=== PATIENT | male | born 1965 | race Caucasian/White ===

== ENCOUNTER 2020-05-30 08:11 | Outpatient (CLI) | payer OTHER, SELFPAY ==
[2020-05-30 08:58] LABS: Basophils Absolute Auto 0.1 K/mm3 (0.0-0.1); Basophils Percent Auto 0.9 % (0.2-1.2); Eosinophils Absolute Auto 0.1 K/mm3 (0-0.3); Eosinophils Percent Auto 2.4 % (0-4.4); Hematocrit 44.4 % (42.0-52.0); Hemoglobin 15.2 g/dL (14.0-18.0); Immature Granulocyte Absolute 0.02 K/mm3 (0.00-0.031); Immature Granulocyte Percent A 0.3 % (0-0.5); Lymphocytes Absolute Auto 1.56 K/mm3 (0.9-3.2); Lymphocytes Percent Auto 27.3 % (18.3-44.2); Mean Corpuscular HGB Conc 34.2 g/dl (32-36); Mean Corpuscular Hemoglobin 30.5 pg (26-34); Mean Platelet Volume 9.7 fl (7.4-10.4); Monocytes Absolute Auto 0.5 K/mm3 (0.1-0.6); Monocytes Percent Auto 7.9 % (2.6-8.5); Neutrophils Absolute Auto 3.5 K/mm3 (1.3-6.7); Neutrophils Percent Auto 61.2 % (45.5-73.1); Platelet Count Result 242 k/mm3 (150-375); Red Blood Count 4.99 M/mm3 (4.6-6.20); Red Cell Distribution Width 12.5 % (11.5-14.5); White Blood Count 5.7 K/mm3 (4.5-10.0)
[2020-05-30 09:11] LABS: Alanine Aminotransferase 19 U/L (4-50); Albumin Level 3.9 g/dL (3.5-5.1); Alkaline Phosphatase 49 U/L (38-126); Anion Gap 4 mmol/L (8-16); Aspartate Amino Transferase 24 U/L (17-59); Bilirubin,Total 0.5 mg/dL (0.2-1.3); Blood Urea Nitrogen 13 mg/dL (9-20); Calcium 9.1 mg/dL (8.4-10.2); Carbon Dioxide 32 mmol/L (22-30); Chloride 104 mmol/L (98-107); Cholesterol 199 mg/dL (0-200); Estimated Glomerular Filt Rate > 60; Glucose 105 mg/dL (75-110); HDL Direct 43 mg/dL; Potassium 4.8 mmol/L (3.4-5.0); Sodium 140 mmol/L (137-145); Triglycerides 95 mg/dL (<150)
[2020-05-30 09:22] LABS: LDL Cholesterol Direct 128 mg/dL
[2020-05-30 09:27] LABS: T4 Thyroxine 7.66 ug/dL (5.53-11.0)
[2020-05-30 09:41] LABS: Prostate Specific Antigen 0.6 ng/mL (< OR = 4.0)
== END 2020-05-30 08:12 | disposition home or self-care (01) ==
PROVIDERS: PCP Internal Medicine; Visit Provider Internal Medicine
DX: N42.9 Disorder of prostate, unspecified (principal); I10 Essential (primary) hypertension
CPT/HCPCS: 36415; 80053; 80061; 84153; 84436; 84443; 85025

== ENCOUNTER 2022-08-19 01:25 | Day surgery (SDC) | payer BC, SELFPAY ==
[2022-08-03 14:54] VITALS: BMI 26.5
--- NOTE | 2022-08-18 13:35 | P.PNAN_ITS ---
Anes - Initial Pre Proc Eval Procedure: Operation Date: 08/19/22 07:30 Proposed Procedures p Screening Colonoscopy - Kingston Brock MD Date/Time: 08/18/22 13:35 Surgeon: Kingston Brock MD Pre Op Diagnosis: hx of colon polyps Patient Data Age: 57 Gender: M Height: 1.78 m Weight: 84 kg Allergies Allergy/AdvReac Type Severity Reaction Status Date / Time No Known Allergies Allergy Verified 08/03/22 14:53 Home Medications Medication Instructions Recorded Confirmed Type Lactobacillus 1 cap PO DAILY 08/03/22 08/19/22 History acidophilus-Bifidobac.animalis 2.5 billion cell capsule (Daily Probiotic) amlodipine 2.5 mg tablet 2.5 mg PO DAILY 08/03/22 08/19/22 History loratadine 10 mg tablet 10 mg PO DAILY 08/03/22 08/19/22 History multivitamin with minerals-folic 1 tablet PO DAILY 08/03/22 08/19/22 History acid 0.4 mg tablet rosuvastatin 10 mg tablet 10 mg PO DAILY 08/03/22 08/19/22 History Patient hx anesthesia problems: none Family hx anesthesia problems: none Results Review: All pre-operative results and documents have been reviewed as part of the pre- operative evaluation. [facility] Past Medical History Medical History Hyperlipidemia Hypertension IBS (irritable bowel syndrome) Social History Social History Smoking status: Never smoker Alcohol intake: current Drinks per week: 6 Substance use type: does not use Living arrangements: with family Spiritual care concerns: No Anes - Eval Final PreProcedure Day of Procedure 08/18/22 13:35 Patient weight: overweight Heart: regular rate and rhythm Lungs: clear to auscultation Airway: Mallampati scale class II Neurological: alert and oriented Last oral intake: >/= 8 hours ASA classification: II Emergent: no Anesthetic plan: proceed Anesthesia type and monitoring: general GIVS and standard monitoring Results Review: All pre-operative results and documents have been reviewed as part of the pre- operative evaluation. Informed Consent: The patient's anesthetic plan and its attendant risks and benefits were discussed with the patient/family/POA. Questions were solicited and answers provided to the satisfaction of the patient/family/POA.
--- NOTE | 2022-08-18 13:50 | PM.HPGS ---
History of Present Illness History of Present Illness Consent: Risks, benefits, and alternatives have been discussed and questions answered. Patient agrees to proceed with procedure. Chief complaint: hx of colon polyps Narrative: John Pelayo Jr. is a 57 year old male Referred for colon cancer screening. His last colonoscopy was about 8 years ago. He does have a history of polyps. Review of Systems Review of Systems: All systems reviewed & are unremarkable except as noted in HPI and below PMFSH Past Medical History Medical History Hyperlipidemia Hypertension IBS (irritable bowel syndrome) Social History Social History Smoking status: Never smoker Alcohol intake: current Drinks per week: 6 Substance use type: does not use Living arrangements: with family Spiritual care concerns: No Meds Home Medications and Allergies Home Medications Medication Instructions Recorded Confirmed Type Lactobacillus 1 cap PO DAILY 08/03/22 08/19/22 History acidophilus-Bifidobac.animalis 2.5 billion cell capsule (Daily Probiotic) amlodipine 2.5 mg tablet 2.5 mg PO DAILY 08/03/22 08/19/22 History loratadine 10 mg tablet 10 mg PO DAILY 08/03/22 08/19/22 History multivitamin with minerals-folic 1 tablet PO DAILY 08/03/22 08/19/22 History acid 0.4 mg tablet rosuvastatin 10 mg tablet 10 mg PO DAILY 08/03/22 08/19/22 History Allergies Allergy/AdvReac Type Severity Reaction Status Date / Time No Known Allergies Allergy Verified 08/03/22 14:53 Exam Const: General: alert Orientation/consciousness: patient oriented x3 Resp: Auscultation: clear to auscultation bilaterally Cardio: Rhythm: regular rhythm GI: GI Palp: Yes Soft to palpation and No Tenderness to palpation present (GI) Neuro: General: patient oriented x3 Assessment and Plan Assessment and plan (1) Colon cancer screening: Code(s): Z12.11 - Encounter for screening for malignant neoplasm of colon Status: Acute Assessment and Plan: Colonoscopy with possible biopsy or polypectomy or cautery or injection of substances.
[2022-08-19 06:18] VITALS: BP 135/74; PULSE 66; RESP 16; TEMP 36.1; O2SAT 100
[2022-08-19] MEDS: LACTATED RINGERS 1,000 ML 150 ML IV CONT (06:32)
[2022-08-19 07:51] VITALS: BP 100/73; PULSE 69; RESP 19; O2SAT 100
[2022-08-19 08:01] VITALS: BP 128/77; PULSE 65; RESP 18; O2SAT 100
[2022-08-19 08:11] VITALS: BP 123/82; PULSE 64; RESP 20; O2SAT 100
== END 2022-08-19 08:22 | disposition home or self-care (01) ==
PROVIDERS: PCP Internal Medicine; Visit Provider Internal Medicine Gastroenterology
PROC: 0DJD8ZZ Inspection of Lower Intestinal Tract, Via Natural or Artificial Opening Endoscopic (ICD-10-PCS; CPT 45378; principal; 2022-08-19 07:30)
DX: Z12.11 Encounter for screening for malignant neoplasm of colon (principal); K64.8 Other hemorrhoids; K57.30 Diverticulosis of large intestine without perforation or abscess without bleeding; D12.5 Benign neoplasm of sigmoid colon; I10 Essential (primary) hypertension; E78.5 Hyperlipidemia, unspecified; K58.9 Irritable bowel syndrome, unspecified
CPT/HCPCS: 45385; 88305; J2704; J7120

== ENCOUNTER 2022-09-21 00:52 | Day surgery (SDC) | payer BC, SELFPAY ==
[2022-09-06 11:14] VITALS: BMI 26.9
--- NOTE | 2022-09-20 16:41 | PM.HPGS ---
History of Present Illness History of Present Illness Consent: Risks, benefits, and alternatives have been discussed and questions answered. Patient agrees to proceed with procedure. Chief complaint: dysphagia Narrative: Jonh Pelayo Jr. is a 57 year old male Dysphagia for solid food. at times it feels like it does not want to go down. On other occasions it will seem to be stuck in his chest. He states that his tells me he eats too fast. He has also had a great deal of bloating, flatulence, and burping lately. He does not have a CPAP machine. Review of Systems Review of Systems: All systems reviewed & are unremarkable except as noted in HPI and below PMFSH Past Medical History Medical History Hyperlipidemia Hypertension IBS (irritable bowel syndrome) Social History Social History Smoking status: Never smoker Alcohol intake: current Drinks per week: 6 Alcohol use details: socially Substance use: never Substance use type: does not use Living arrangements: alone Spiritual care concerns: No Meds Home Medications and Allergies Home Medications Medication Instructions Recorded Confirmed Type Lactobacillus 1 cap PO DAILY 08/03/22 09/21/22 History acidophilus-Bifidobac.animalis 2.5 billion cell capsule (Daily Probiotic) amlodipine 2.5 mg tablet 2.5 mg PO DAILY 08/03/22 09/21/22 History loratadine 10 mg tablet 10 mg PO DAILY 08/03/22 09/21/22 History multivitamin with minerals-folic 1 tablet PO DAILY 08/03/22 09/21/22 History acid 0.4 mg tablet rosuvastatin 10 mg tablet 10 mg PO DAILY 08/03/22 09/21/22 History Allergies Allergy/AdvReac Type Severity Reaction Status Date / Time No Known Allergies Allergy Verified 09/21/22 06:15 Exam Const: General: alert Orientation/consciousness: patient oriented x3 Resp: Auscultation: clear to auscultation bilaterally Cardio: Rhythm: regular rhythm GI: GI Palp: Yes Soft to palpation and No Tenderness to palpation present (GI) Neuro: General: patient oriented x3 Assessment and Plan Assessment and plan (1) Dysphagia: Code(s): R13.10 - Dysphagia, unspecified Status: Acute Assessment and Plan: EGD with possible biopsy or dilatation or cautery.
[2022-09-21 06:16] VITALS: BP 138/79; PULSE 59; RESP 16; TEMP 36; O2SAT 100; BMI 26.6
[2022-09-21] MEDS: LACTATED RINGERS 1,000 ML 150 ML IV CONT (06:24)
--- NOTE | 2022-09-21 07:18 | P.PNAN_ITS ---
Anes - Initial Pre Proc Eval Procedure: Operation Date: 09/21/22 07:30 Proposed Procedures p Esophagogastroduodenoscopy - Kingston Brock MD Date/Time: 09/21/22 07:18 Surgeon: Kingston Brock MD Pre Op Diagnosis: dysphagia Patient Data Age: 57 Gender: M Height: 1.78 m Weight: 84.3 kg Last Vital Signs Temp 96.8 F L 09/21/22 06:16 Pulse 59 L 09/21/22 06:16 Resp 16 09/21/22 06:16 BP 138/79 09/21/22 06:16 Pulse Ox 100 09/21/22 06:16 O2 Del Method Room Air 09/21/22 06:16 Allergies Allergy/AdvReac Type Severity Reaction Status Date / Time No Known Allergies Allergy Verified 09/21/22 06:15 Home Medications Medication Instructions Recorded Confirmed Type Lactobacillus 1 cap PO DAILY 08/03/22 09/21/22 History acidophilus-Bifidobac.animalis 2.5 billion cell capsule (Daily Probiotic) amlodipine 2.5 mg tablet 2.5 mg PO DAILY 08/03/22 09/21/22 History loratadine 10 mg tablet 10 mg PO DAILY 08/03/22 09/21/22 History multivitamin with minerals-folic 1 tablet PO DAILY 08/03/22 09/21/22 History acid 0.4 mg tablet rosuvastatin 10 mg tablet 10 mg PO DAILY 08/03/22 09/21/22 History Patient hx anesthesia problems: none Family hx anesthesia problems: none Results Review: All pre-operative results and documents have been reviewed as part of the pre- operative evaluation. [facility] Past Medical History Medical History Hyperlipidemia Hypertension IBS (irritable bowel syndrome) Social History Social History Smoking status: Never smoker Alcohol intake: current Drinks per week: 6 Alcohol use details: socially Substance use: never Substance use type: does not use Living arrangements: alone Spiritual care concerns: No Anes - Eval Final PreProcedure Day of Procedure 09/21/22 07:18 Patient weight: normal Heart: regular rate and rhythm Lungs: clear to auscultation Airway: Mallampati scale class II Neurological: alert and oriented Last oral intake: >/= 8 hours ASA classification: II Emergent: no Anesthetic plan: proceed Anesthesia type and monitoring: general GIVS and standard monitoring Results Review: All pre-operative results and documents have been reviewed as part of the pre- operative evaluation. Informed Consent: The patient's anesthetic plan and its attendant risks and benefits were discussed with the patient/family/POA. Questions were solicited and answers provided to the satisfaction of the patient/family/POA.
[2022-09-21 07:43] VITALS: BP 106/70; PULSE 60; RESP 14; O2SAT 98
[2022-09-21 07:53] VITALS: BP 118/74; PULSE 61; RESP 23; O2SAT 100
[2022-09-21 08:03] VITALS: BP 125/90; PULSE 60; RESP 18; O2SAT 100
== END 2022-09-21 08:10 | disposition home or self-care (01) ==
PROVIDERS: PCP Internal Medicine; Visit Provider Internal Medicine Gastroenterology
PROC: 0DJ08ZZ Inspection of Upper Intestinal Tract, Via Natural or Artificial Opening Endoscopic (ICD-10-PCS; CPT 43235; principal; 2022-09-21 07:30)
DX: K22.2 Esophageal obstruction (principal); I10 Essential (primary) hypertension; E78.5 Hyperlipidemia, unspecified
CPT/HCPCS: 43249; 88305; C1726; J2704; J7120

== ENCOUNTER 2022-12-12 00:42 | Day surgery (SDC) | payer BC, SELFPAY ==
[2022-11-29 13:17] VITALS: BMI 26.9
--- NOTE | 2022-12-11 19:22 | PM.HPGS ---
History of Present Illness History of Present Illness Consent: Risks, benefits, and alternatives have been discussed and questions answered. Patient agrees to proceed with procedure. Chief complaint: Esophageal Stricture, Dysphagia Narrative: John Pelayo Jr. is a 57 year old male with dysphagia due to esophageal stricture. Review of Systems Review of Systems: All systems reviewed & are unremarkable except as noted in HPI and below PMFSH Past Medical History Medical History Hyperlipidemia Hypertension IBS (irritable bowel syndrome) Social History Social History Smoking status: Never smoker Alcohol intake: current Drinks per week: 6 Alcohol use details: socially Substance use: never Substance use type: does not use Living arrangements: with family Spiritual care concerns: No Meds Home Medications and Allergies Home Medications Medication Instructions Recorded Confirmed Type Lactobacillus 1 cap PO DAILY 08/03/22 11/29/22 History acidophilus-Bifidobac.animalis 2.5 billion cell capsule (Daily Probiotic) amlodipine 2.5 mg tablet 2.5 mg PO DAILY 08/03/22 11/29/22 History loratadine 10 mg tablet 10 mg PO DAILY 08/03/22 11/29/22 History multivitamin with minerals-folic 1 tablet PO DAILY 08/03/22 11/29/22 History acid 0.4 mg tablet rosuvastatin 10 mg tablet 10 mg PO DAILY 08/03/22 11/29/22 History pantoprazole 40 mg tablet,delayed 40 mg PO QAM #30 tabs 09/21/22 11/29/22 Rx release Allergies Allergy/AdvReac Type Severity Reaction Status Date / Time No Known Allergies Allergy Verified 12/12/22 08:01 Exam Const: General: alert Orientation/consciousness: patient oriented x3 Resp: Auscultation: clear to auscultation bilaterally Cardio: Rhythm: regular rhythm GI: GI Palp: Yes Soft to palpation and No Tenderness to palpation present (GI) Neuro: General: patient oriented x3 Assessment and Plan Assessment and plan (1) Dysphagia: Code(s): R13.10 - Dysphagia, unspecified Status: Acute Assessment and Plan: EGD with possible biopsy or dilatation or cautery.
[2022-12-12 08:02] VITALS: BP 130/78; PULSE 64; RESP 20; TEMP 36.3; O2SAT 100
[2022-12-12] MEDS: LACTATED RINGERS 1,000 ML 150 ML IV CONT (08:12)
--- NOTE | 2022-12-12 08:27 | P.PNAN_ITS ---
Anes - Initial Pre Proc Eval Procedure: Operation Date: 12/12/22 09:00 Proposed Procedures p Esophagogastroduodenoscopy - Kingston Brock MD Date/Time: 12/12/22 08:27 Surgeon: Kingston Brock MD Pre Op Diagnosis: Esophageal Stricture, Dysphagia Patient Data Age: 57 Gender: M Height: 1.78 m Weight: 86.5 kg Last Vital Signs Temp 97.3 F L 12/12/22 08:02 Pulse 64 12/12/22 08:02 Resp 20 12/12/22 08:02 BP 130/78 12/12/22 08:02 Pulse Ox 100 12/12/22 08:02 O2 Del Method Room Air 12/12/22 08:02 Allergies Allergy/AdvReac Type Severity Reaction Status Date / Time No Known Allergies Allergy Verified 12/12/22 08:01 Home Medications Medication Instructions Recorded Confirmed Type Lactobacillus 1 cap PO DAILY 08/03/22 11/29/22 History acidophilus-Bifidobac.animalis 2.5 billion cell capsule (Daily Probiotic) amlodipine 2.5 mg tablet 2.5 mg PO DAILY 08/03/22 11/29/22 History loratadine 10 mg tablet 10 mg PO DAILY 08/03/22 11/29/22 History multivitamin with minerals-folic 1 tablet PO DAILY 08/03/22 11/29/22 History acid 0.4 mg tablet rosuvastatin 10 mg tablet 10 mg PO DAILY 08/03/22 11/29/22 History pantoprazole 40 mg tablet,delayed 40 mg PO QAM #30 tabs 09/21/22 11/29/22 Rx release Patient hx anesthesia problems: none Family hx anesthesia problems: none Results Review: All pre-operative results and documents have been reviewed as part of the pre- operative evaluation. [facility] Past Medical History Medical History Hyperlipidemia Hypertension IBS (irritable bowel syndrome) Social History Social History Smoking status: Never smoker Alcohol intake: current Drinks per week: 6 Alcohol use details: socially Substance use: never Substance use type: does not use Living arrangements: with family Spiritual care concerns: No Anes - Eval Final PreProcedure Day of Procedure 12/12/22 08:27 Patient weight: normal Heart: regular rate and rhythm Lungs: clear to auscultation Airway: Mallampati scale class II Neurological: alert and oriented Last oral intake: >/= 8 hours ASA classification: II Emergent: no Anesthetic plan: proceed Anesthesia type and monitoring: general GIVS and standard monitoring Results Review: All pre-operative results and documents have been reviewed as part of the pre- operative evaluation. Informed Consent: The patient's anesthetic plan and its attendant risks and benefits were discu ssed with the patient/family/POA. Questions were solicited and answers provided to the satisfaction of the patient/family/POA.
[2022-12-12 09:06] VITALS: BP 112/68; PULSE 64; RESP 23; O2SAT 100
[2022-12-12 09:16] VITALS: BP 110/79; PULSE 55; RESP 17; O2SAT 100
[2022-12-12 09:26] VITALS: BP 115/81; PULSE 54; RESP 20; O2SAT 100
== END 2022-12-12 09:33 | disposition home or self-care (01) ==
PROVIDERS: PCP Internal Medicine; Visit Provider Internal Medicine Gastroenterology
PROC: 0DJ08ZZ Inspection of Upper Intestinal Tract, Via Natural or Artificial Opening Endoscopic (ICD-10-PCS; CPT 43235; principal; 2022-12-12 09:00)
DX: K22.2 Esophageal obstruction (principal); K21.00 Gastro-esophageal reflux disease with esophagitis, without bleeding; I10 Essential (primary) hypertension; E78.5 Hyperlipidemia, unspecified
CPT/HCPCS: 43249; C1726; J2704; J7120

== ENCOUNTER 2024-09-25 11:24 | Outpatient (CLI) | payer BC, SELFPAY ==
--- NOTE | ~2024-09-25 | XR_ITS ---
EXAMINATION: XR chest 2V 09/25/2024 11:33 INDICATION: Cough PROCEDURE: 2 view chest COMPARISON: No prior studies for comparison. FINDINGS: The lungs are clear. The cardiomediastinal silhouette is within normal limits. There are no pleural effusions. There is no pneumothorax suspected. IMPRESSION: 1: NO ACUTE CARDIOPULMONARY DISEASE. Reviewed, dictated and finalized at location B. [employer]
== END 2024-09-25 11:25 | disposition home or self-care (01) ==
PROVIDERS: PCP Internal Medicine; Visit Provider Internal Medicine
DX: R05.9 Cough, unspecified (principal)
CPT/HCPCS: 71046

== ENCOUNTER 2024-09-27 09:33 | Outpatient (CLI) | payer BC, SELFPAY ==
--- NOTE | ~2024-09-27 | CT_ITS ---
EXAMINATION: CT brain & sinus wo con DATE: 09/27/2024 09:51 INDICATION: Headache. TECHNIQUE: Computed tomography (CT) of the head and paranasal sinuses was performed without intraveno us contrast. The mA was adjusted according to patient size. Iterative reconstruction technique was em ployed. The dose-length product was 674.51 mGy-cm. COMPARISON: None FINDINGS: CT HEAD: There is no intracranial hemorrhage, acute infarction, or abnormal intracranial mass lesion. The ventricles are normal in size. The orbits are normal. There is a left otomastoid effusion. CT SINUSES: The frontal sinuses are hypoplastic. There is mild mucosal thickening in the frontal rece sses and ethmoid sinuses. There is mild mucosal thickening in left sphenoid sinus and the maxillary s inuses. There is dependent fluid in the maxillary sinuses. There is leftward deviation of the nasal s eptum. There is a Javier cell on the right. The ostiomeatal units are patent. IMPRESSION: 1. Normal brain. 2. Mild mucosal thickening in the paranasal sinuses. 3. Leftward deviation of the nasal septum. 4. Left otomastoid effusion. Reviewed, dictated and finalized at location A. [employer]
== END 2024-09-27 09:34 | disposition home or self-care (01) ==
LOC: MICIMG 09:35
PROVIDERS: PCP Internal Medicine; Visit Provider Internal Medicine
DX: J32.9 Chronic sinusitis, unspecified (principal); J34.89 Other specified disorders of nose and nasal sinuses; J34.2 Deviated nasal septum; H74.8X2 Other specified disorders of left middle ear and mastoid
CPT/HCPCS: 70450; 70486